=== PATIENT | male | born 1950 | race Caucasian/White ===

== ENCOUNTER → 2018-07-24 | Outpatient (CLI) | payer OTHER, MEDICARE ==
[~2018-07-24] MED LIST: ALPR-475 PO; ASCO500T8 PO; CYCL-259 PO; FENT-58 TD; FERR-46 PO; GABA300C10 PO; MULT-658 PO; ONDA8TAB9 PO; OXYC-307 PO; PROC10TA78 PO; ROSU20TA2 PO; TAMS-11 PO
== END | disposition home or self-care (01) ==
LOC: STAR 10:44
PROVIDERS: ATTEND Internal Medicine Geriatric Medicine
DX: Z01.818 Encounter for other preprocedural examination (principal); K80.50 Calculus of bile duct without cholangitis or cholecystitis without obstruction; K86.89 Other specified diseases of pancreas; Z88.9 Allergy status to unspecified drugs, medicaments and biological substances
CPT/HCPCS: 93005

== ENCOUNTER 2018-07-29 06:31 | Day surgery (SDC) | payer OTHER, MEDICARE ==
[~2018-07-29] VITALS: Ht 170.2 cm; Wt 82.5 kg
[2018-07-29] MEDS ORDERED: LACTATED RINGERS 1,000 ML IV SCH (07:03)
[2018-07-29 07:32] VITALS: BP 114/70
[2018-07-29] MEDS ORDERED: FENTANYL PF 100 MCG/2ML ONE (08:14)
[2018-07-29] MEDS ORDERED: EPHEDRINE 50 MG/ML, 1ML ONE (09:00)
[2018-07-29] MEDS ORDERED: DEXAMETHASONE 4 MG/ML, 1ML ONE (09:08)
[2018-07-29] MEDS ORDERED: ONDANSETRON 2MG/ML, 2ML ONE (09:08)
[2018-07-29] MEDS ORDERED: PROPOFOL 10 MG/ML, 20ML ONE (09:08)
[2018-07-29] MEDS ORDERED: HYDROmorphone 2 MG/ML, 1ML IVPush PRN (09:30)
[2018-07-29] MEDS ORDERED: PROMETHAZINE 25 MG/ML, 1ML IV PRN (09:30)
[2018-07-29] MEDS ORDERED: SCOPOLAMINE PATCH, 1.5MG PATCH.TD72 TD PRN (09:30)
[2018-07-29] MEDS ORDERED: ONDANSETRON 2MG/ML, 2ML IV PRN (09:30)
[2018-07-29] MEDS ORDERED: FENTANYL PF 100 MCG/2ML IV PRN (09:30)
[2018-07-29] MEDS ORDERED: OXYcodone 5 MG/5 ML ORAL.SOL UDC PO PRN (09:30)
[2018-07-29] MEDS ORDERED: DIAZEPAM 5 MG/ML, 2ML IVPush PRN (09:30)
[2018-07-29] MEDS ORDERED: MIDAZOLAM 1 MG/ML, 2ML IV PRN (09:30)
[2018-07-29] MEDS ORDERED: OXYcodone 5 MG/5 ML ORAL.SOL UDC ONE (09:52)
[2018-07-29] MEDS ORDERED: ROCURONIUM 10MG/ML,5ML ONE (15:51)
[2018-07-29] MEDS ORDERED: SUCCINYLCHOLINE 20 MG/ML, 10ML ONE (15:51)
== END 2018-07-29 11:45 | disposition home or self-care (01) ==
LOC: OUT 06:31
PROVIDERS: ATTEND Internal Medicine Geriatric Medicine
DX: K29.80 Duodenitis without bleeding (principal); K26.9 Duodenal ulcer, unspecified as acute or chronic, without hemorrhage or perforation; K80.50 Calculus of bile duct without cholangitis or cholecystitis without obstruction; K86.89 Other specified diseases of pancreas; D64.9 Anemia, unspecified; E78.5 Hyperlipidemia, unspecified; Z87.39 Personal history of other diseases of the musculoskeletal system and connective tissue; Z98.890 Other specified postprocedural states; Z87.891 Personal history of nicotine dependence
CPT/HCPCS: 43242; 88172; 88173; 88305; J0330; J1100; J2405; J2704; J3010; J7120